=== PATIENT | female | born 1970 | race Two or more races ===

== ENCOUNTER 2022-06-24 08:03 | Outpatient (CLI) | payer OTHER | END 2022-06-24 08:11 | disposition home or self-care (01) | LOC: RAD 08:03 | PROVIDERS: ATTEND Orthopaedic Surgery | DX: M25.571 Pain in right ankle and joints of right foot (principal) ==

== ENCOUNTER 2022-09-29 13:07 | Outpatient (CLI) | payer OTHER | END 2022-09-29 13:09 | disposition home or self-care (01) | LOC: RAD 13:07 | PROVIDERS: ATTEND Orthopaedic Surgery | DX: M25.571 Pain in right ankle and joints of right foot (principal) ==